=== PATIENT | female | born 1985 | race Caucasian/White ===

== ENCOUNTER 2018-03-25 00:18 | Emergency (ER) | payer OTHER ==
[2018-03-25] MEDS ORDERED: KETOROLAC 60 MG/2 ML VIAL IM STA (01:22)
--- NOTE | 2018-03-25 01:22 | ED Physician Documentation ---
PD HPI LOWER EXT INJURY - Stated complaint Stated Complaint: RT ANKLE PAIN - Chief complaint Chief Complaint: Ext Problem - History obtained from History obtained from: Patient - History of Present Illness PD HPI LOW EXT INJURY LOCATION: Right, Ankle Type of injury: Other (no injury (was walking)) Timing - onset: Enter time (19:00), Today Timing - details: Abrupt onset Pain level now: 6 Worsened by: Moving, Palpating Recently seen: Not recently seen - Additional information Additional information: 7 PM tonight, patient had sudden onset right ankle pain while walking (she was standing and opening a door). she says she has had this before, and she says it was due to her ankle "dislocating" (per patient). she says she is to have surgery for this recurrent problem. She c/o right ankle and right hip pain. The ankle pain is worse with palpation and movement. she is able to weight-bear, although this also exacerbates the pain. 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 - Past Surgical History Past Surgical History: No - Present Medications Home Medications: Ambulatory Orders Medication Instructions Recorded Confirmed Ibuprofen 600 mg PO Q6HR PRN #30 tablet 05/15/15 predniSONE [Deltasone] 40 mg PO DAILY 5 Days tablet 05/15/15 traMADol [Ultram] 50 mg PO Q4-6H PRN #15 tablet 05/15/15 Tramadol HCl 50 mg PO Q6HR PRN #20 tablet 03/25/18 - Allergies Allergies/Adverse Reactions: Allergies Allergy/AdvReac Type Severity Reaction Status Date / Time clarithromycin [From Biaxin] Allergy Unknown Verified 03/25/18 00:34 Penicillins Allergy Unknown Verified 03/25/18 00:34 - Social History Does the pt smoke?: No Smoking Status: Never smoker Does the pt drink ETOH?: No Does the pt have substance abuse?: No - Immunizations Immunizations are current?: Yes - POLST Patient has POLST: No PD ED PE NORMAL - Vitals Vital signs reviewed: Yes - General General: Alert and oriented X 3, No acute distress (NAD at rest; pain is reproduced with exam), Well developed/nourished - Derm Derm: Normal color, Warm and dry - Extremities Extremities: No deformity, No edema, Other (TTP right ankle, medial and lateral malleoli. TTP right foot, base of fifth metatarsal. ) - Neuro Neuro: No motor deficit, No sensory deficit Results - Vitals Vitals: Vital Signs - 24 hr 03/25/18 03/25/18 03/25/18 00:31 01:36 01:57 Temperature 36.7 C Heart Rate 81 Respiratory 17 17 16 Rate Blood Pressure 144/90 H O2 Saturation 99 03/25/18 03/25/18 02:55 03:00 Temperature Heart Rate 62 Respiratory 17 17 Rate Blood Pressure 138/85 H O2 Saturation 99 Oxygen O2 Source Room air - Rads (name of study) right ankle xrays Radiology: Prelim report reviewed, See rad report right foot xrays Radiology: Prelim report reviewed, See rad report PD MEDICAL DECISION MAKING - ED course Complexity details: reviewed results, re-evaluated patient, considered diff erential, d/w patient Departure - Departure Disposition: 01 Home, Self Care Clinical Impression: Right ankle sprain Condition: Good Instructions: ED Sprain Ankle W X Ray Follow-Up: MARY MOFFETT III, MD [Primary Care Provider] - Prescriptions: Tramadol HCl 50 mg PO Q6HR PRN #20 tablet PRN Reason: Pain Forms: Activity restrictions Discharge Date/Time: 03/25/18 03:00
--- NOTE | 2018-03-25 02:04 | XRAY Report ---
Reason: injury, pain, tenderness Procedure Date: 03/25/2018 Accession Number: [id number] / [id number] Procedure: XR - Ankle 3 View RT CPT Code: FULL RESULT: EXAM: RIGHT ANKLE RADIOGRAPHY EXAM DATE: 03/25/2018 01:35 AM. CLINICAL HISTORY: Injury, pain, tenderness. COMPARISON: None. TECHNIQUE: 3 views. FINDINGS: Bones: Normal. No fractures or bone lesions. There are a few small ossicles inferior to the medial malleolus. Joints: Normal. No effusion. No subluxations. The ankle mortise is normally aligned. Soft Tissues: Normal. No soft tissue swelling. IMPRESSION: Negative x-rays. No acute findings. RADIA
--- NOTE | 2018-03-25 02:05 | XRAY Report ---
Reason: injury, pain Procedure Date: 03/25/2018 Accession Number: [id number] / [id number] Procedure: XR - Foot 3 View RT CPT Code: FULL RESULT: EXAM: RIGHT FOOT RADIOGRAPHY EXAM DATE: 03/25/2018 01:37 AM. CLINICAL HISTORY: Injury, pain. COMPARISON: None. TECHNIQUE: 3 views. FINDINGS: Bones: Normal. No fractures or bone lesions. Joints: Normal. No subluxations. Soft Tissues: Normal. No soft tissue swelling. IMPRESSION: Normal foot radiography. RADIA
[2018-03-25 02:55] VITALS: BP 138/85
== END 2018-03-25 03:00 | disposition home or self-care (01) ==
LOC: ED 00:18
DX: S93.401A Sprain of unspecified ligament of right ankle, initial encounter (principal); X50.1XXA Overexertion from prolonged static or awkward postures, initial encounter; Y93.89 Activity, other specified
CPT/HCPCS: 96372; 99283

== ENCOUNTER 2018-11-07 11:29 | Emergency (ER) | payer OTHER ==
[2018-11-07 11:40] VITALS: BP 136/87
[2018-11-07] MEDS ORDERED: KETOROLAC 60 MG/2 ML VIAL IM STA (12:08)
--- NOTE | 2018-11-07 12:39 | ED Physician Documentation ---
PD HPI UPPER EXT INJURY - Stated complaint Stated Complaint: R SHOULDER PX - Chief complaint Chief Complaint: Ext Problem - History obtained from History obtained from: Patient - History of Present Illness Location: Right, Shoulder Timing - onset: How many weeks ago (1) Worsened by: Moving Similar symptoms before: Diagnosis (Rotator cuff tear) - Additonal information Additional information: The patient is a 33-year-old female with a history of right rotator cuff tear, who presents with right shoulder pain that started 1 week ago when she was painting over her head. She is right-hand dominant. She has had similar symptoms intermittently for the past 2 years. She denies neck pain, numbness or weakness. Review of Systems Constitutional: denies: Fever Nose: denies: Congestion Throat: denies: Sore throat Cardiac: denies: Chest pain / pressure Respiratory: denies: Dyspnea, Cough Skin: denies: Rash Musculoskeletal: reports: Joint pain (right shoulder). 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 HEENT: None Psych: None Musculoskeletal: Other (right rotator cuff tear) Derm: None - Past Surgical History Past Surgical History: No - Present Medications Home Medications: Ambulatory Orders Medication Instructions Recorded Confirmed Ibuprofen 600 mg PO Q6HR PRN #30 tablet 05/15/15 predniSONE [Deltasone] 40 mg PO DAILY 5 Days tablet 05/15/15 traMADol [Ultram] 50 mg PO Q4-6H PRN #15 tablet 05/15/15 Tramadol HCl 50 mg PO Q6HR PRN #20 tablet 03/25/18 Ibuprofen [Ibu] 800 mg PO BID #30 tablet 11/07/18 - Allergies Allergies/Adverse Reactions: Allergies Allergy/AdvReac Type Severity Reaction Status Date / Time clarithromycin [From Biaxin] Allergy Unknown Verified 11/07/18 11:40 Penicillins Allergy Unknown Verified 11/07/18 11:40 morphine AdvReac Unknown Verified 11/07/18 11:40 - Social History Does the pt smoke?: No Smoking Status: Never smoker Does the pt drink ETOH?: No Does the pt have substance abuse?: No - Immunizations Immunizations are current?: Yes - POLST Patient has POLST: No PD ED PE NORMAL - Vitals Vital signs reviewed: Yes (normal) - General General: Alert and oriented X 3, Well developed/nourished - HEENT HEENT: Atraumatic - Neck Neck: No bony TTP - Cardiac Cardiac: RRR - Respiratory Respiratory: No respiratory distress - Back Back: No spinal TTP - Derm Derm: No rash - Extremities Extremities: Other (There is tenderness to palpation over the posterior superior aspect of the right shoulder just posterior to the acromioclavicular joint. The pain is exacerbated with elevation of her right arm. She tolerates passive range of motion better than active range of motion. Distal neurovascular is intact.) - Neuro Neuro: Alert and oriented X 3, No motor deficit, No sensory deficit Results - Vitals Vitals: Vital Signs - 24 hr 11/07/18 11:37 Temperature 36.4 C L Heart Rate 70 Respiratory 16 Rate Blood Pressure 136/87 H O2 Saturation 96 Oxygen O2 Source Room air - Rads (name of study) Right shoulder Radiology: Prelim report reviewed, EMP read contemporaneously, See rad report (Normal right shoulder radiography.) PD MEDICAL DECISION MAKING - ED course Complexity details: reviewed results, re-evaluated patient, considered differential, d/w patient ED course: The patient's presentation is most consistent with right rotator cuff tear. X- ray of the right shoulder reveals no acute bony abnormality. Treatment in the emergency department included administration of Toradol 60 mg IM and application of a right arm sling. She is being discharged with prescription for ibuprofen. I discussed with her symptomatic treatment, orthopedic follow-up, as well as potentially worrisome signs or symptoms that should prompt reevaluation in the emergency department. Departure - Departure Disposition: 01 Home, Self Care Clinical Impression: Right rotator cuff tear Qualifiers: Rotator cuff tear extent: unspecified tear extent Rotator cuff tear trauma status: traumatic Encounter type: initial encounter Qualified Code(s): S46.011A - Strain of muscle(s) and tendon(s) of the rotator cuff of right shoulder, initial encounter Condition: Stable Instructions: ED Torn Rotator Cuff Follow-Up: [facility] [Provider Group] [facility] [Provider Group] Prescriptions: Ibuprofen [Ibu] 800 mg PO BID #30 tablet Comments: Apply ice pack to your right shoulder intermittently for the next 4 days. Use the sling for comfort. You can use ibuprofen, up to 800 mg 3 times daily for anti-inflammatory effect. Follow-up with your primary physician within 1 week. Call to schedule an appointment. Return to the emergency department if you develop increasing pain, numbness or weakness, or otherwise worsening symptoms. Forms: Activity restrictions Discharge Date/Time: 11/07/18 12:55
--- NOTE | 2018-11-07 12:45 | XRAY Report ---
Reason: right shoulder pain. Procedure Date: 11/07/2018 Accession Number: [id number] / [id number] Procedure: XR - Shoulder 3 View RT CPT Code: FULL RESULT: EXAM: RIGHT SHOULDER RADIOGRAPHY EXAM DATE: 11/07/2018 12:10 PM. CLINICAL HISTORY: Right shoulder pain. History of rotator cuff injury. COMPARISON: None available. TECHNIQUE: 3 views. FINDINGS: Bones: Normal. No fracture or bone lesion. Joints: The glenohumeral and acromioclavicular joints are normal. Soft tissues: The visualized hemithorax is unremarkable. No soft tissue swelling. IMPRESSION: Negative right shoulder. RADIA
== END 2018-11-07 12:55 | disposition home or self-care (01) ==
LOC: ED 11:29
DX: S46.011A Strain of muscle(s) and tendon(s) of the rotator cuff of right shoulder, initial encounter (principal); X50.9XXA Other and unspecified overexertion or strenuous movements or postures, initial encounter; Y93.89 Activity, other specified
CPT/HCPCS: 96372; 99283

== ENCOUNTER 2018-11-08 16:52 | Emergency (ER) | payer OTHER ==
[2018-11-08 17:06] VITALS: BP 136/83
[2018-11-08] MEDS ORDERED: predniSONE 20 MG TABLET PO STA (17:20)
[2018-11-08] MEDS ORDERED: KETOROLAC 60 MG/2 ML VIAL IM STA (17:20)
--- NOTE | 2018-11-08 17:23 | ED Physician Documentation ---
PD HPI UPPER EXT INJURY - Stated complaint Stated Complaint: R HAND NUMBNESS/NECK PX - Chief complaint Chief Complaint: Ext Problem - History obtained from History obtained from: Patient - History of Present Illness Location: Right (injured Shoulder 4 years ago, since then has had intermittent problems. More recently has had a lot of popping and was seen yesterday with negative x-rays. 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 HEENT: None Psych: None Musculoskeletal: Other Derm: None - Past Surgical History Past Surgical History: No - Present Medications Home Medications: Ambulatory Orders Medication Instructions Recorded Confirmed RX: Ibuprofen 600 mg PO Q6HR PRN #30 tablet 05/15/15 RX: predniSONE [Deltasone] 40 mg PO DAILY 5 Days tablet 05/15/15 RX: traMADol [Ultram] 50 mg PO Q4-6H PRN #15 tablet 05/15/15 RX: Tramadol HCl 50 mg PO Q6HR PRN #20 tablet 03/25/18 RX: Ibuprofen [Ibu] 800 mg PO BID #30 tablet 11/07/18 RX: predniSONE [Deltasone] 20 mg PO [id number] #21 tab 11/08/18 traMADol [Ultram] 50 mg PO Q4-6H PRN #15 tablet 11/08/18 - Allergies Allergies/Adverse Reactions: Allergies Allergy/AdvReac Type Severity Reaction Status Date / Time clarithromycin [From Biaxin] Allergy Unknown Verified 11/08/18 17:06 Penicillins Allergy Unknown Verified 11/08/18 17:06 morphine AdvReac Unknown Verified 11/08/18 17:06 - Social History Does the pt smoke?: No Smoking Status: Never smoker Does the pt drink ETOH?: No Does the pt have substance abuse?: No - Immunizations Immunizations are current?: Yes - POLST Patient has POLST: No PD ED PE NORMAL - Vitals Vital signs reviewed: Yes - General General: Alert and oriented X 3, No acute distress - Neck Neck: Supple, no meningeal sign, No bony TTP - Extremities Extremities: Other (Right shoulder in a sling and not range since she was damage yesterday. She has mild diffuse numbness of the right hand that does not follow a dermatomal nor peripheral nerve pattern. 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 It could just be from being in the sling and she was advised to come out of that several times a day and do range of motion exercises it could be a cervical radiculopathy to but it does not quite fit. [place] is started [place] steroids [place] Departure - Departure Disposition: 01 Home, Self Care Clinical Impression: Right rotator cuff tear Condition: Good Record reviewed to determine appropriate education?: Yes Health Concerns: shoulder pain Instructions: ED Cervical Radiculopathy Prescriptions: RX: predniSONE [Deltasone] 20 mg PO [id number] #21 tab traMADol [Ultram] 50 mg PO Q4-6H PRN #15 tablet PRN Reason: Pain Comments: [place] Return if worse. At that appointment discuss MRIs of the cervical spine and shoulder. Forms: Activity restrictions Discharge Date/Time: 11/08/18 17:59
== END 2018-11-08 17:59 | disposition home or self-care (01) ==
LOC: ED 16:52
DX: M75.101 Unspecified rotator cuff tear or rupture of right shoulder, not specified as traumatic (principal)
CPT/HCPCS: 96372; 99283; J7512

== ENCOUNTER 2019-01-15 12:45 | Outpatient (CLI) | payer OTHER ==
--- NOTE | 2019-01-16 08:52 | MRI Report ---
Reason: PAIN IN UNSPECIFIED SHOULDER, PARESTHESIA OF SKIN Procedure Date: 01/15/2019 Accession Number: [id number] / [id number] Procedure: MRI - Cervical Spine W/O CPT Code: FULL RESULT: EXAM: MRI CERVICAL SPINE WITHOUT CONTRAST EXAM DATE: 01/15/2019 01:47 PM. CLINICAL HISTORY: 33-year-old female. PAIN IN UNSPECIFIED SHOULDER, PARESTHESIA OF SKIN. COMPARISONS: SHOULDER 3 VIEW RT 11/07/2018 11:48 AM. TECHNIQUE: Multiplanar, multisequence T1-weighted and fluid-sensitive sequences of the cervical spine without contrast. Other: None. FINDINGS: Neurologic Structures: The visualized posterior fossa structures are unremarkable. No signal abnormality in the visualized spinal cord. Alignment: No scoliosis or spondylolisthesis. Bone Marrow: No gross fractures or bone lesions. No marrow edema. Interspace Levels/Facets: C1-C2: Unremarkable. C2-C3: Unremarkable. C3-C4: Unremarkable. C4-C5: Unremarkable. C5-C6: Unremarkable. C6-C7: Unremarkable. C7-T1: Unremarkable. Musculature: Normal. No edema or fatty atrophy. Other: The paravertebral and prevertebral soft tissues are normal. IMPRESSION: Unremarkable cervical spine MRI. [facility]IA
== END 2019-01-15 12:46 | disposition home or self-care (01) ==
LOC: DI 12:45
PROVIDERS: ATTEND General Practice
DX: M25.511 Pain in right shoulder (principal); R20.2 Paresthesia of skin
CPT/HCPCS: 72141

== ENCOUNTER 2019-01-16 13:44 | Outpatient (CLI) | payer OTHER ==
[2019-01-16] MEDS ORDERED: BUFFERED LIDOCAINE 10 ML SYRINGE ONE (14:08)
[2019-01-16] MEDS ORDERED: GADOPENTETATE DIMEGLUMINE 5 ML VIAL IVP ONE ×2 (14:09→15:27)
[2019-01-16] MEDS ORDERED: IOTHALAMATE MEGLUMINE 50 ML VIAL ONE (14:09)
--- NOTE | 2019-01-16 15:06 | XRAY Report ---
Reason: PAIN IN UNSPECIFIED SHOULDER, PARESTHESIA OF SKIN Procedure Date: 01/16/2019 Accession Number: [id number] / [id number] Procedure: FL - Arthrogram Needle Placement CPT Code: FULL RESULT: EXAM: RIGHT SHOULDER ARTHROGRAPHIC INJECTION WITH FLUOROSCOPIC GUIDANCE EXAM DATE: 01/16/2019 02:56 PM. CLINICAL HISTORY: Right shoulder pain COMPARISON: SHOULDER 3 VIEW RT 11/07/2018 11:48 AM. TECHNIQUE: The risks, benefits, and alternatives of the procedure were discussed with the patient. All questions were answered. Written and verbal consent were obtained. The right glenohumeral joint was marked under fluoroscopy and prepped and draped in a sterile manner. Local anesthesia was performed with 1% lidocaine. A 22-gauge needle was then inserted into the glenohumeral joint. 10 mL of a solution containing 25% 1% lidocaine, 25% iodinated contrast, and a 1:200 dilution of gadolinium contrast in sterile saline was then injected. The needle was removed without immediate complication. Other: None. Fluoroscopy Time: 1 minute 23 seconds. Number of Images: 4. FINDINGS: Bones and joints: No fracture or subluxation. Injection: Fluoroscopic images demonstrate needle placement and contrast in the right glenohumeral joint. No contrast extravasation outside of the glenohumeral joint. IMPRESSION: Successful fluoroscopically guided arthrographic injection of the right shoulder. RADIA
[2019-01-16] MEDS ORDERED: BUFFERED LIDOCAINE 10 ML SYRINGE IU ONE (15:27)
[2019-01-16] MEDS ORDERED: IOTHALAMATE MEGLUMINE 50 ML VIAL IVP ONE (15:27)
--- NOTE | 2019-01-17 11:11 | MRI Report ---
Reason: PAIN IN UNSPECIFIED SHOULDER, PARESTHESIA OF SKIN Procedure Date: 01/16/2019 Accession Number: [id number] / [id number] Procedure: MRI - Arthrogram Shoulder RT CPT Code: FULL RESULT: EXAM: RIGHT SHOULDER MRI ARTHROGRAM WITH CONTRAST EXAM DATE: 01/16/2019 03:17 PM. CLINICAL HISTORY: Shoulder pain. Skin paresthesias. Decreased range of motion and injury in 2000. COMPARISON: Radiograph 11/07/2018. TECHNIQUE: Multiplanar, multisequence T1-weighted and fluid-sensitive sequences of the shoulder after an arthrographic injection of dilute gadolinium, dictated under a separate exam. Other: None. FINDINGS: Acromioclavicular Region: The acromion is type II. The acromioclavicular joint is unremarkable. The coracoacromial and coracoclavicular ligaments are intact. A small amount of contrast in the subacromial/subdeltoid bursa indicates a full-thickness rotator cuff tear. Glenohumeral Region: No subluxation. No loose bodies. The articular cartilage is unremarkable. The glenohumeral ligaments and joint capsule are unremarkable. Bone Marrow: No fracture, marrow edema or bone lesions. Labrum: The labrum is unremarkable. Biceps Tendon: The long head of the biceps tendon and biceps aliyah are intact. Musculature/Rotator Cuff: The subscapularis tendon is unremarkable. The supraspinatus tendon has an 8 mm wide focus of full-thickness and near full-thickness tearing. The length of the tear is 1.1 cm. There is a partial-thickness, joint-sided tear of the infraspinatus mid fibers that is 9 mm in width, 6 mm in length, and one third in thickness (601/16; 901/23). The teres minor tendon is intact. No edema or fatty atrophy. Other: The subcutaneous tissues are unremarkable. IMPRESSION: 1. Mild subacromial/subdeltoid bursitis. 2. Partial with region of full-thickness and near full-thickness tearing of the supraspinatus tendon. 3. Partial width, partial-thickness tear of the infraspinatus tendon. RADIA
== END 2019-01-16 13:45 | disposition home or self-care (01) ==
LOC: DI 13:44
PROVIDERS: ATTEND General Practice
DX: M75.51 Bursitis of right shoulder (principal); M75.101 Unspecified rotator cuff tear or rupture of right shoulder, not specified as traumatic
CPT/HCPCS: 23350; 73222; 77002; Q9961

== ENCOUNTER 2019-04-23 12:50 | Outpatient (CLI) | payer OTHER ==
[2019-04-23] MEDS ORDERED: BUFFERED LIDOCAINE 10 ML SYRINGE ONE (13:07)
--- NOTE | 2019-04-23 14:41 | Ultrasound Report ---
Reason: RT SHOULDER SUPERIOR GLENOID LABRUM LESION Procedure Date: 04/23/2019 Accession Number: [id number] / [id number] Procedure: US - Injection Single Tendon CPT Code: 92954 Final Report FULL RESULT: EXAM: ULTRASOUND GUIDED BICEPS TENDON SHEATH PAIN INJECTION. EXAM DATE: 04/23/2019 01:57 PM. CLINICAL HISTORY: Right shoulder superior glenoid labrum lesion. Right shoulder pain. COMPARISON: None. TECHNIQUE: Real-time and static images were obtained. FINDINGS: Following written and informed consent, the right shoulder and upper arm region was sterilely prepped and draped in the usual fashion. Under real-time live sonographic guidance a 25-gauge needle was advanced to the biceps tendon sheath and 0.5% ropivacaine 5 mL were injected into the tendon sheath. The needle was withdrawn. The patient appeared to tolerate the procedure well. A bandage was applied. IMPRESSION: Uncomplicated anesthetic injection into the right biceps tendon sheath. RADIA
[2019-04-23] MEDS ORDERED: BUPIVACAINE 0.5% PF 30 ML VIAL SUBQ ONE (15:26)
== END 2019-04-23 12:51 | disposition home or self-care (01) ==
LOC: DI 12:50
PROVIDERS: ATTEND Orthopaedic Surgery
DX: S43.431A Superior glenoid labrum lesion of right shoulder, initial encounter (principal); M67.88 Other specified disorders of synovium and tendon, other site
CPT/HCPCS: 20550

== ENCOUNTER 2019-05-01 11:38 | Outpatient (CLI) | payer OTHER | END 2019-05-01 11:39 | disposition home or self-care (01) | LOC: DI 11:38 | PROVIDERS: ATTEND Student in an Organized Health Care Education/Training Program | DX: M35.7 Hypermobility syndrome (principal) | CPT/HCPCS: 93306 ==

== ENCOUNTER 2019-05-14 07:52 | Emergency (ER) | payer OTHER ==
[2019-05-14 08:01] VITALS: BP 135/79
--- NOTE | 2019-05-14 09:15 | ED Physician Documentation ---
History of Present Illness - Stated complaint Stated Complaint: COMMISSION PHYSICAL - Chief complaint Chief Complaint: General - History obtained from History obtained from: Patient - History of Present Illness Timing: Other (she needs commission physical done for forms; had appt 3 days ago for it but [facility] closed due to weather, and was still closed all week. 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 HEENT: None Psych: None Musculoskeletal: Other Derm: None - Past Surgical History Past Surgical History: No - Present Medications Home Medications: Ambulatory Orders Medication Instructions Recorded Confirmed Ibuprofen 600 mg PO Q6HR PRN #30 tablet 05/15/15 predniSONE [Deltasone] 40 mg PO DAILY 5 Days tablet 05/15/15 traMADol [Ultram] 50 mg PO Q4-6H PRN #15 tablet 05/15/15 Tramadol HCl 50 mg PO Q6HR PRN #20 tablet 03/25/18 Ibuprofen [Ibu] 800 mg PO BID #30 tablet 11/07/18 predniSONE [Deltasone] 20 mg PO [id number] #21 tab 11/08/18 traMADol [Ultram] 50 mg PO Q4-6H PRN #15 tablet 11/08/18 - Allergies Allergies/Adverse Reactions: Allergies Allergy/AdvReac Type Severity Reaction Status Date / Time clarithromycin [From Biaxin] Allergy Unknown Verified 05/14/19 08:00 Penicillins Allergy Unknown Verified 05/14/19 08:00 morphine AdvReac Unknown Verified 05/14/19 08:00 - Social History Does the pt smoke?: No Smoking Status: Never smoker Does the pt drink ETOH?: No Does the pt have substance abuse?: No - Immunizations Immunizations are current?: Yes - POLST Patient has POLST: No PD ED PE NORMAL - Vitals Vital signs reviewed: Yes - General General: Alert and oriented X 3, No acute distress, Well developed/nourished - HEENT HEENT: Pharynx benign - Neck Neck: Supple, no meningeal sign, No adenopathy, Thyroid normal - Cardiac Cardiac: RRR, No murmur - Respiratory Respiratory: Clear bilaterally - Abdomen Abdomen: Soft, Non tender, No organomegaly - Derm Derm: Normal color, Warm and dry - Extremities Extremities: Normal ROM s pain - Neuro Neuro: Alert and oriented X 3, No motor deficit, Normal speech Results - Vitals Vitals: Oxygen O2 Source Room air PD MEDICAL DECISION MAKING - ED course Complexity details: considered differential (not usual ER patient, but she had tried to get regular appt but [facility] closed all week due to weather. So I felt it reasonable to do this. Her physical exam form was filled out and sent with her. No abnormalities. Normal exam. It was govt form [id number]. ), d/w patient Departure - Departure Disposition: 01 Home, Self Care Clinical Impression: Physical exam Condition: Stable Record reviewed to determine appropriate education?: Yes Follow-Up: DONG SCHUMACHER MD [Primary Care Provider] - Discharge Date/Time: 05/14/19 10:03
== END 2019-05-14 10:03 | disposition home or self-care (01) ==
LOC: ED 07:52
DX: Z02.3 Encounter for examination for recruitment to armed forces (principal)
CPT/HCPCS: 99281

== ENCOUNTER 2019-12-23 18:37 | Emergency (ER) | payer OTHER ==
[2019-12-23 19:37] LABS: BILIRUBIN,URINE NEGATIVE (NEGATIVE); GLUCOSE, URINE (UA) NEGATIVE (NEGATIVE); KETONES,URINE (UA) NEGATIVE (NEGATIVE); LEUKOCYTE ESTERASE, URINE TRACE (NEGATIVE); NITRITE,URINE NEGATIVE (NEGATIVE); OCCULT BLOOD,URINE LARGE (NEGATIVE); PROTEIN,URINE NEGATIVE (NEGATIVE); UROBILINOGEN,URINE 0.2 (NORMAL) E.U./dL (NORMAL)
[2019-12-23 19:38] LABS: CLARITY,URINE CLEAR (CLEAR)
[2019-12-23 20:26] LABS: BACTERIA,URINE Rare /HPF (None Seen); SQUAMOUS EPITHELIAL CELL,UR FEW Squamous (<= Few); WBC CLUMPS,URINE PRESENT
[2019-12-23 21:26] LABS: HCG UR QUAL NEGATIVE
--- NOTE | 2019-12-23 21:29 | ED Physician Documentation ---
History of Present Illness - Stated complaint Stated Complaint: FEMALE - Chief complaint Chief Complaint: Abd Pain - Additonal information Additional information: 34-year-old female presents to the emergency department for acute onset of hematuria and dysuria urgency frequency beginning this afternoon. She reports that [place] been gone [place] 4 [place] and engaged in sexual activity with her . The symptoms began today. She has had no fevers or flank pain. She does report that her urine is frankly bloody. She does endorse a history of kidney stones in her father but she denies any CVA tenderness or history of personal stones in the past Patient has a history of previous hysterectomy allergy: pcn and biaxin Review of Systems Constitutional: denies: Fever, Chills Throat: denies: Dental pain / toothache, Oral lesions / sores Cardiac: denies: Chest pain / pressure, Palpitations Respiratory: denies: Dyspnea, Cough : reports: Dysuria, Frequency, Hematuria. denies: Vaginal bleeding, Irregular menses Musculoskeletal: denies: Neck pain, Back pain, Extremity pain Neurologic: reports: Generalized weakness, Focal weakness, Syncope, Seizure PD PAST MEDICAL HISTORY - Past Medical History Past Medical History: Yes Cardiovascular: None Respiratory: None Neuro: None Endocrine/Autoimmune: None GI: None COLLEGE PRESIDENT: None : None HEENT: None Psych: None Musculoskeletal: Other Derm: None - Past Surgical History Past Surgical History: Yes Ortho: Other /COLLEGE PRESIDENT: Hysterectomy - Present Medications Home Medications: Ambulatory Orders Medication Instructions Recorded Confirmed Ibuprofen 600 mg PO Q6HR PRN #30 tablet 05/15/15 predniSONE [Deltasone] 40 mg PO DAILY 5 Days tablet 05/15/15 traMADol [Ultram] 50 mg PO Q4-6H PRN #15 tablet 05/15/15 Tramadol HCl 50 mg PO Q6HR PRN #20 tablet 03/25/18 Ibuprofen [Ibu] 800 mg PO BID #30 tablet 11/07/18 predniSONE [Deltasone] 20 mg PO [id number] #21 tab 11/08/18 traMADol [Ultram] 50 mg PO Q4-6H PRN #15 tablet 11/08/18 Cephalexin [Keflex] 500 mg PO BID #14 capsule 12/23/19 Phenazopyridine HCl [Pyridium] 200 mg PO TID PRN #6 tablet 12/23/19 - Allergies Allergies/Adverse Reactions: Allergies Allergy/AdvReac Type Severity Reaction Status Date / Time clarithromycin [From Biaxin] Allergy Unknown Verified 05/14/19 08:00 Penicillins Allergy Unknown Verified 05/14/19 08:00 morphine AdvReac Unknown Verified 05/14/19 08:00 - Social History Does the pt smoke?: No Smoking Status: Never smoker Does the pt drink ETOH?: No Does the pt have substance abuse?: No - Immunizations Immunizations are current?: Yes - POLST Patient has POLST: No PD ED PE NORMAL - General General: Alert and oriented X 3, No acute distress - HEENT HEENT: EOMI, Ears normal, Moist mucous membranes - Neck Neck: Supple, no meningeal sign, No adenopathy - Cardiac Cardiac: RRR, No murmur - Respiratory Respiratory: No respiratory distress, Clear bilaterally - Abdomen Abdomen: Normal bowel sounds. No: Non tender (suprapubic tenderness. negative mcburney's; negative murphys) - Back Back: No CVA TTP, No spinal TTP - Derm Derm: Normal color, Warm and dry, No rash - Extremities Extremities: No deformity, No tenderness to palpate - Neuro Neuro: Alert and oriented X 3, hematology oncology consultant 2-12 intact Eye Opening: Spontaneous Motor: Obeys Commands Verbal: Oriented GCS Score: 15 Results - Vitals Vitals: Vital Signs - 24 hr 12/23/19 19:03 Temperature 37.8 C H Heart Rate 69 Respiratory 16 Rate Blood Pressure 113/81 H O2 Saturation 99 Oxygen O2 Source Room air - Labs Labs: Laboratory Tests 12/23/19 12/23/19 18:48 18:48 Urine Color LIGHT YELLOW Urine Clarity CLEAR Urine pH 6.0 Ur Specific [place] <=1.005 <1.005 Urine Protein NEGATIVE Urine Glucose (UA) NEGATIVE Urine Ketones NEGATIVE Urine Occult Blood LARGE H Urine Nitrite NEGATIVE Urine Bilirubin NEGATIVE Urine Urobilinogen 0.2 (NORMAL) Ur Leukocyte Esterase TRACE H Urine RBC 6-10 H Urine WBC 11-25 H Urine WBC Clumps PRESENT Ur Squamous Epith Cells FEW Squamous Urine Bacteria Rare Ur Microscopic Review INDICATED Urine Culture Comments INDICATED Urine HCG, Qual NEGATIVE PD MEDICAL DECISION MAKING - ED course Complexity details: reviewed results, considered differential, d/w patient ED course: 34-year-old female presents the emergency department with acute onset hematuria dysuria urgency and frequency. Recently returned from [place] and she did engage in such course with her . The urine does show mild amount of leukocyte moderate amount of blood. Given her symptoms I do suspect acute cystitis. She has no fevers flank pain or vomiting therefore I doubt that she has pyelonephritis. In addition given the lack of CVA tenderness or flank pain I do not feel that this represents acute nephrolithiasis. She was given 1 g of ceftriaxone here in the emergency department will be prescribed cephalexin on discharge. I have advised that if her symptoms are not improving, she has fevers flank pain worsening symptoms to return to the emergency department for a second evaluation Departure - Departure Disposition: Home, Self Care Clinical Impression: Cystitis Condition: Stable Record reviewed to determine appropriate education?: Yes Instructions: ED UTI Cystitis Female Follow-Up: DONG SCHUMACHER MD [Primary Care Provider] - Prescriptions: Cephalexin [Keflex] 500 mg PO BID #14 capsule Phenazopyridine HCl [Pyridium] 200 mg PO TID PRN #6 tablet PRN Reason: dysuria Comments: Radha your urine certainly suggest that you have a cute infection. We have given you your first dose of antibiotics here in the emerge [facility] department. Tomorrow please fill the prescription for the cephalexin and begin taking twice a day for the next 7 days. I did also prescribe the Pyridium which will cause your urine to turn orange. Drink a lot of water and stay well-hydrated. If at any point you have worsening symptoms, fevers vomiting or pain higher in your back please return to the emergency department for second evaluation
[2019-12-23] MEDS ORDERED: cefTRIAXone 1 GM VIAL IM STA (21:30)
[2019-12-23] MEDS ORDERED: LIDOCAINE 1% 2 ML VIAL MC ONE (21:30)
[2019-12-23 22:03] VITALS: BP 126/82
== END 2019-12-23 22:15 | disposition home or self-care (01) ==
LOC: ED 18:37
DX: N30.01 Acute cystitis with hematuria (principal)
CPT/HCPCS: 81001; 81003; 81025; 87077; 87086; 87181; 96372; 99283; 99284